=== PATIENT | female | born 1970 | race Caucasian/White ===

== ENCOUNTER 2018-11-16 15:40 | Emergency (ER) | payer OTHER ==
[~2018-11-16] VITALS: Ht 165.1 cm; Wt 76.7 kg
[~2018-11-16 15:40] MED LIST: AFRIN15 ML NS; ANTIVERT25 MG PO; AUGMENTIN 875-1 EACH PO; CLARITIN10 MG PO; DOXYCYCLINE 10100 MG PO; KEFLEX500 MG PO; MEDROLDOSEPACK PO; NASONEX17 GM NASAL; SELENIUM SULFI180 ML TP; TRANSDERM-SCOP1 EACH TRANSDERM
[2018-11-16 15:43] VITALS: BP 140/74
[2018-11-16] MEDS ORDERED: LEVOXYL75 MCG PO (15:45)
[2018-11-16] MEDS ORDERED: BLEPH-105 ML OPHTHALMIC (15:46)
== END 2018-11-16 15:50 | disposition home or self-care (01) ==
LOC: M.ERS 15:40
DX: H10.9 Unspecified conjunctivitis (principal); Z98.51 Tubal ligation status; Z90.49 Acquired absence of other specified parts of digestive tract

== ENCOUNTER 2018-12-01 13:20 | Emergency (ER) | payer OTHER ==
[~2018-12-01] VITALS: Ht 165.1 cm; Wt 74.8 kg
[~2018-12-01 13:20] MED LIST changes: +BLEPH-105 ML OPHTHALMIC; +LEVOXYL75 MCG PO
[2018-12-01] MEDS ORDERED: DIPHENHIST50 MG PO (13:41)
[2018-12-01 14:09] VITALS: BP 137/92
== END 2018-12-01 14:10 | disposition home or self-care (01) ==
LOC: M.ERS 13:20
DX: J06.9 Acute upper respiratory infection, unspecified (principal); E03.9 Hypothyroidism, unspecified; J02.9 Acute pharyngitis, unspecified; Z88.2 Allergy status to sulfonamides; Z98.51 Tubal ligation status

== ENCOUNTER 2019-03-06 14:59 | Emergency (ER) | payer OTHER ==
[~2019-03-06] VITALS: Ht 165.1 cm; Wt 74.8 kg
[~2019-03-06 14:59] MED LIST changes: +DIPHENHIST50 MG PO
[2019-03-06 15:07] VITALS: BP 166/87
[2019-03-06 15:20] LABS: URINE BILIRUBIN NEGATIVE (Negative); URINE BLOOD 2+ (Negative); URINE CLARITY SL CLOUDY; URINE COLOR YELLOW; URINE GLUCOSE-RANDOM NEGATIVE (Negative); URINE KETONES NEGATIVE (Negative); URINE PROTEIN 1+ (Negative); URINE SPECIFIC GRAVITY >= 1.030 (1.005-1.030); URINE UROBILINOGEN 0.2 E.U./dl (0.2-1.0)
[2019-03-06 15:21] LABS: URINE LEUKOCYTES-REFLEX 2+ (Negative); URINE NITRITE-REFLEX POSITIVE (Negative)
[2019-03-06 15:28] LABS: SQUAMOUS >10 Many /LPF (0-3)
[2019-03-06 15:29] LABS: BACTERIA-REFLEX >30 Many /HPF (None Seen); CASTS None Seen /LPF (None Seen); CRYSTALS None Seen /LPF (None Seen); MUCUS 0-3 Light strn/LPF (None Seen); URINE RBC >20 Many /HPF (0-2); URINE WBC-REFLEX >25 Many /HPF (0-5); WBC CLUMPS Moderate (None Seen)
[2019-03-06] MEDS ORDERED: AUGMENTIN 875-1 EACH PO (15:56)
[2019-03-06] MEDS ORDERED: PYRIDIUM100 M1 PO (15:56)
== END 2019-03-06 16:06 | disposition home or self-care (01) ==
LOC: M.ERS 14:59
PROVIDERS: Nurse Practitioner Family
DX: N39.0 Urinary tract infection, site not specified (principal); J06.9 Acute upper respiratory infection, unspecified; E03.9 Hypothyroidism, unspecified; Z98.51 Tubal ligation status; Z90.49 Acquired absence of other specified parts of digestive tract

== ENCOUNTER 2019-05-28 10:48 | Emergency (ER) | payer OTHER ==
[~2019-05-28] VITALS: Ht 165.1 cm; Wt 72.6 kg
[~2019-05-28 10:48] MED LIST changes: +PYRIDIUM100 M1 PO
[2019-05-28] MEDS ORDERED: NASONEX17 GM NASAL (11:53)
[2019-05-28 12:21] VITALS: BP 132/80
== END 2019-05-28 12:21 | disposition home or self-care (01) ==
LOC: M.ERS 10:48
DX: J32.9 Chronic sinusitis, unspecified (principal); E03.9 Hypothyroidism, unspecified; Z90.49 Acquired absence of other specified parts of digestive tract

== ENCOUNTER 2020-12-18 13:15 | Emergency (ER) | payer OTHER ==
[~2020-12-18] VITALS: Ht 165.1 cm; Wt 72.6 kg
[2020-12-18 13:55] LABS: URINE BILIRUBIN NEGATIVE (Negative); URINE BLOOD NEGATIVE (Negative); URINE CLARITY CLEAR; URINE COLOR YELLOW; URINE GLUCOSE-RANDOM NEGATIVE (Negative); URINE KETONES NEGATIVE (Negative); URINE LEUKOCYTES-REFLEX NEGATIVE (Negative); URINE NITRITE-REFLEX NEGATIVE (Negative); URINE PROTEIN NEGATIVE (Negative); URINE UROBILINOGEN 0.2 E.U./dl (0.2-1.0)
[2020-12-18] MEDS ORDERED: DOXYCYCLINE 10100 MG PO (15:18)
[2020-12-18] MEDS ORDERED: SUPRAX400 M1 PO (15:18)
[2020-12-18 15:44] VITALS: BP 146/74
== END 2020-12-18 15:45 | disposition home or self-care (01) ==
LOC: M.ERS 13:15
PROVIDERS: Physician Assistant
DX: R39.11 Hesitancy of micturition (principal); E03.9 Hypothyroidism, unspecified; Z79.899 Other long term (current) drug therapy